=== PATIENT | female | born 1995 | race Caucasian/White ===

== ENCOUNTER 2024-12-15 15:08 | Emergency (ER) | payer MEDICAID, OTHER ==
[~2024-12-15] VITALS: Ht 160 cm; Wt 79.3 kg
[2024-12-15 15:10] VITALS: O2SAT 98
[2024-12-15 16:32] LABS: BASOPHILS % 0.3 % (0.0-2.0); EOSINOPHILS % 0.7 % (0.0-5.0); HEMATOCRIT. 35.9 % (36.0-48.0); HEMOGLOBIN. 11.9 g/dL (12.0-16.0); LYMPHOCYTES % 16.2 % (20.0-50.0); MEAN CORPUSCULAR HEMOGLOBIN 30.8 pg (28.0-32.0); MEAN CORPUSCULAR HGB CONC 33.3 g/dL (31.0-37.0); MEAN CORPUSCULAR VOLUME 92.8 fL (81.0-99.0); MEAN PLATELET VOLUME 8.4 fl (7.4-10.4); MONOCYTES % 4.9 % (2.0-8.0); NEUTROPHILS % 77.9 % (40.0-76.0); PLATELET 382 x1000/uL (130-400); RED BLOOD CELL COUNT 3.87 mill/uL (4.2-5.4); RED CELL DISTRIBUTION WIDTH 14.9 % (11.6-14.6); WHITE BLOOD COUNT 12.8 x1000/uL (4.5-11.0)
[2024-12-15 16:36] LABS: CHLORIDE 108 mEq/L (98-107); POTASSIUM 4.2 mEq/L (3.5-5.1)
[2024-12-15 16:37] LABS: CARBON DIOXIDE 22 mEq/L (21-32); SODIUM 139 mEq/L (136-145)
[2024-12-15 16:38] LABS: CALCIUM 10.7 mg/dL (8.7-10.4)
[2024-12-15 16:43] LABS: CREATININE 0.4 mg/dL (0.6-1.0); GLUCOSE 116 mg/dL (70-105); UREA NITROGEN BLOOD 7 mg/dL (9-23)
[2024-12-15] MEDS: LABETALOL 5MG/ML 4ML INJ IV ONE (16:43)
[2024-12-15] MEDS: ONDANSETRON HCL 4MG/2ML INJ IV ONE (16:44)
[2024-12-15] MEDS: MAGNESIUM 4 G PREMIX 100 ML IV NR (16:59)
[2024-12-15 17:00] VITALS: BP 125/77; PULSE 114; RESP 18; TEMP 36.6; O2SAT 98
[2024-12-15 17:23] LABS: URIC ACID 4.2 mg/dL (3.1-7.8)
[2024-12-15 17:39] LABS: ALANINE AMINOTRANSFERASE 13 IU/L (10-49); ALBUMIN 3.8 g/dL (3.2-4.8); ASPARTATE AMINOTRANSFERASE 15 IU/L (<34); PROTEIN TOTAL 6.6 g/dL (6.0-8.3)
[2024-12-15 17:40] LABS: BILIRUBIN DIRECT < 0.1 mg/dL (<=3.0); BILIRUBIN TOTAL 0.2 mg/dL (0.1-1.0)
[2024-12-15 17:42] LABS: B-HCG QUANTITATIVE 5947 mIU/mL (<6)
== END 2024-12-15 17:36 | disposition short-term general hospital (02) ==
LOC: ER 15:08 → CANBEDREQ 17:00 → ER 17:36
DX: O16.3 Unspecified maternal hypertension, third trimester (principal); Z3A.32 32 weeks gestation of pregnancy
CPT/HCPCS: 99291; 96365; 76805; 96375; 80076; 80048; 84702; 83735; 84550; 85025; 36415; 76817; J3490; J3475; J2405